=== PATIENT | male | born 1950 | race Caucasian/White ===

== ENCOUNTER 2016-08-05 13:28 | Emergency (ER) | payer BC ==
[2016-08-05] MEDS ORDERED: ceFAZolin 1 GM Vial IM ONE (14:27)
[2016-08-05] MEDS ORDERED: Water For Injection, Sterile 20 ML ONE (14:31)
[2016-08-05] MEDS ORDERED: Lidocaine 1% 20 ML MDV ONE (15:08)
[2016-08-05] MEDS ORDERED: Lidocaine 1% 20 ML MDV INJECT ONE (15:11)
--- NOTE | 2016-08-05 15:13 | EDM.PDOC ---
ED HPI GENERAL MEDICAL PROBLEM - General Chief Complaint: Upper Extremity Injury/Pain Stated Complaint: SMASHED FINGER/LT HAND Time Seen by Provider: 08/05/16 13:38 Source of Information: Reports: Patient History Limitations: Reports: No Limitations - History of Present Illness INITIAL COMMENTS - FREE TEXT/NARRATIVE: HISTORY AND PHYSICAL: History of present illness: [Pt comes to the ER complaining of lacerations to L index and middle fingers. Was carrying a filing cabinet, when he dropped it on his hand crushing his fingers. He complains of pain and bleeding, but denies numbness and tingling. No other injury. No previous injuries or surgeries to his hand. He lives in [place], but is visiting [place] for the weekend. Is returning home this evening. ] Review of systems: As per history of present illness and below otherwise all systems reviewed and negative. Past medical history: As per history of present illness and as reviewed below otherwise noncontributory. Surgical history: As per history of present illness and as reviewed below otherwise noncontributory. Social history: No reported history of drug or alcohol abuse. Family history: As per history of present illness and as reviewed below otherwise noncontributory. Physical exam: HEENT: Atraumatic, normocephalic. Extremities: Palmar side of distal phalynx of L index finger has a flap laceration, approx 1cm in length. Small amount of bleeding. Medial index finger shows small tissue avulsion. 1/2 cm superficial laceration to palmar surface of left middle distal phalyx. DIP is swollen and ecchymotic, with mild subungual hematomas present to both fingers. No other injuries appreciated. Neurovascular unremarkable. Neuro: Awake, alert, oriented. Motor and sensory unremarkable throughout. Exam nonfocal. Diagnostics: [Index and middle finger xrays] Impression: [Tuft fractures of index and middle fingers of L hand] Plan: [See procedure note. Consulted with Dr. Alexis Espitia who is conference services coordinator for hand and orthopedics in [place]. He agrees to see pt tomorrow in the clinic. Patient will be contacted by [facility] in [place] tomorrow with appt time. Patient is given Rx for hydrocodone 5/325mg (#20) si po q 3-4 hours prn pain 0 RF's through [facility]. Xeroform gauze is wrapped around wounds. Pt instructed to leave in place until follow up with ortho. Splints are placed. ] Definitive disposition and diagnosis as appropriate pending reevaluation and review of above. Left 2-Index finger Pain Score (Numeric/FACES): 4 Left 3-Middle finger Pain Score (Numeric/FACES): 4 - Related Data Allergies Allergy/AdvReac Type Severity Reaction Status Date / Time No Known Allergies Allergy Verified 08/05/16 13:38 Home Meds: Home Meds Aspirin 325 mg PO DAILY 08/05/16 [History] Past Medical History HEENT History: Reports: Impaired Vision Other HEENT History: wears glasses Cardiovascular History: Reports: High Cholesterol Other Musculoskeletal History: broken right collar bone - Infectious Disease History Infectious Disease History: Reports: Chicken Pox, Measles, Mumps Social & Family History - Family History Family Medical History: Noncontributory - Tobacco Use Smoking Status *Q: Never Smoker Second Hand Smoke Exposure: No - Caffeine Use Caffeine Use: Reports: Coffee Caffeine Use Comment: 8cups/day - Recreational Drug Use Recreational Drug Use: No Review of Systems - Review of Systems Review Of Systems: ROS reveals no pertinent complaints other than HPI. Trauma Exam - Physical Exam Exam: See Below ED TRAUMA EXTREMITY PROCEDURES - Laceration/Wound Repair Left Distal Finger Lac/wound length in cm: 2 Appearance: subcutaneous, clean Distal NVT: neuro & vascular intact, no tendon injury Anesthetic Type: digital Local anesthesia - Lidocaine (Xylocaine): 1% plain Local anesthetic volume: 2cc Skin prep: chlorhexidine (hibiciens), saline Exploration/Debridement/Repair: wound explored, in a bloodless field Closed with: sutures Suture size: 4-0 # of sutures: 2 (2 sutures placed to loosely tack down flap) Suture type: nylon Drain placement: No Sterile dressing applied: nurse Tetanus status addressed: Yes Complications: No Course - Vital Signs Last Recorded V/S: Last Vital Signs Temp 98 F 08/05/16 15:40 Pulse 78 08/05/16 15:40 Resp 16 08/05/16 15:40 BP 140/72 08/05/16 15:40 Pulse Ox 99 08/05/16 15:40 - Orders/Labs/Meds Orders: Active Orders 24 hr Category Date Time Status Fingers Multiple Lt [CR] Stat Exams 08/05/16 13:40 Taken Meds: Medications Discontinued Medications Generic Name Dose Route Start Last Admin Trade Name Kylee PRN Reason Stop Dose Admin Cefazolin Sodium 1 gm 08/05/16 14:27 08/05/16 14:34 Ancef IM 08/05/16 14:28 1 gm ONETIME ONE Administration Sterile Water Confirm 08/05/16 14:31 08/05/16 14:36 Sterile Water For Injection Administered 08/05/16 14:32 2.5 ml Dose Administration 20 mls @ as directed .ROUTE .STK-MED ONE Lidocaine HCl Confirm 08/05/16 15:08 08/05/16 15:11 Xylocaine 1% Administered 08/05/16 15:09 5 ml Dose Administration 20 ml .ROUTE .STK-MED ONE Lidocaine HCl 20 ml 08/05/16 15:11 08/05/16 15:11 Xylocaine 1% INJECT 08/05/16 15:12 Not Given ONETIME ONE Departure - Departure Time of Disposition: 15:30 Disposition: Home, Self-Care 01 Condition: good Clinical Impression: Closed fracture of tuft of distal phalanx of finger Qualifiers: Encounter type: initial encounter Qualified Code(s): S62.639A - Displaced fracture of distal phalanx of unspecified finger, initial encounter for closed fracture - Discharge Information Instructions: Finger Fracture Referrals: PCP,None [Primary Care Provider] - Forms: ED Department Discharge Additional Instructions: The following information is given to patients seen in the emergency department who are being discharged to home. This information is to outline your options for follow-up care. We provide all patients seen in our emergency department with a follow-up referral. The need for follow-up, as well as the timing and circumstances, are variable depending upon the specifics of your emergency department visit. If you don't have a primary care physician on staff, we will provide you with a referral. We always advise you to contact your personal physician following an emergency department visit to inform them of the circumstance of the visit and for follow-up with them and/or the need for any referrals to a consulting specialist. The emergency department will also refer you to a specialist when appropriate. This referral assures that you have the opportunity for follow-up care with a specialist. All of these measure are taken in an effort to provide you with optimal care, which includes your follow-up. Under all circumstances we always encourage you to contact your private physician who remains a resource for coordinating your care. When calling for follow-up care, please make the office aware that this follow-up is from your recent emergency room visit. If for any reason you are refused follow-up, please contact the [facility] emergency department at and asked to speak to the emergency department charge nurse. [facility] [address], [place] [address] The above listed clinic will call you tomorrow to schedule followup appointment. If you do not hear from them by noon, please give them a call. Take hydrocodone as prescribed. You may alternate Tylenol 325 mg tablets 2 tabs every 6 hours, with ibuprofen 200 mg tablets 3 tabs every 6 hours IF you do not take hydrocodone. Do not take extra Tylenol while taking hydrocodone. Elevate hand above the level of your heart as needed for comfort and to decrease pain. Return to ER as needed as discussed. - My Orders Last 24 Hours: My Active Orders 08/05/16 13:40 Fingers Multiple Lt [CR] Stat - Assessment/Plan Last 24 Hours: My Active Orders 08/05/16 13:40 Fingers Multiple Lt [CR] Stat
[2016-08-05 16:27] VITALS: BP 140/72
--- NOTE | 2016-08-06 17:44 | CR ---
EXAM DATE: 08/05/16 PATIENT'S AGE: 65 Patient: ALVERTO BURKETT Facility: [place], [place] Site . Site : 1950 Study: XRay Extremity Left 2nd and 3rd digits [id number] 2:11:50 PM Ordering Physician: Doctor Romo Final Report: INDICATION: crush injury HISTORY: Injury. COMPARISON: None. TECHNIQUE: Left 2nd/third fingers, 4 views. FINDINGS: There are fracture deformities of the left 2nd and 3rd distal phalanges. There is no radiopaque foreign body. No articular erosion. No periarticular osteopenia. Mineralization is normal. IMPRESSION: Acute fracture deformities of the left 2nd/3rd distal phalanges. Dictated by Rodolfo Mendoza MD @ 08/05/2016 3:00:55 PM Dictated by: Rodolfo Mendoza MD @ 08/05/2016 15:01:02 (Electronic Signature) Report Signed by Proxy. NOE
== END 2016-08-05 15:40 | disposition home or self-care (01) ==
LOC: MW.ED 13:28
DX: S62.631A Displaced fracture of distal phalanx of left index finger, initial encounter for closed fracture (principal); S62.633A Displaced fracture of distal phalanx of left middle finger, initial encounter for closed fracture; E78.00 Pure hypercholesterolemia, unspecified; W23.0XXA Caught, crushed, jammed, or pinched between moving objects, initial encounter
CPT/HCPCS: 12001; 73140; 96372; 99283; J0690